=== PATIENT | female | born 1970 | race Caucasian/White ===

== ENCOUNTER → 2017-05-19 | Outpatient (CLI) | payer MEDICARE | LOC: KOH-I 09:28 | DX: M54.13 Radiculopathy, cervicothoracic region (principal); M50.31 Other cervical disc degeneration, high cervical region; M47.892 Other spondylosis, cervical region | CPT/HCPCS: 72141 ==

== ENCOUNTER 2021-03-02 18:00 | Inpatient (IN) | payer OTHER ==
[~2021-03-02] VITALS: Ht 157.5 cm; Wt 73.5 kg
[~2021-03-02 18:00] MED LIST: ASPIR-LOW81 MG PO; ATORVASTATIN CA20 MG PO; CLOPIDOGREL75 MG PO; HYDROCODON-ACE1 EAC6 PO; LISINOPRIL5 MG PO; LOPRESSOR 25 MG25 MG PO; NEURONTIN 300300 MG PO; OMNICEF 300 MG300 MG PO; PROTONIX 40 MG40 M1 PO; RANITIDINE HCL150 M1 PO; VENTOLIN HFA 66.7 GM INH; ZANTAC150 MG PO
[2021-03-02 18:40] LABS: HEMOGLOBIN 16.2 gm/dl (12.3-15.3); RED BLOOD COUNT 5.14 M/UL (4.00-5.10); WHITE BLOOD COUNT 8.7 K/UL (4.5-11.0)
[2021-03-02 19:07] LABS: BUN/CREATININE RATIO 24 (0-10)
[2021-03-03] MEDS ORDERED: MIRALAX17 GM PO (01:09)
[2021-03-03] MEDS ORDERED: ALBUTEROL2.5 MG/3 M INH (09:48)
[2021-03-03] MEDS ORDERED: LEVALBUTER1.25 MG/3 INH (09:49)
[2021-03-03] MEDS ORDERED: ISOSORBIDE MONO30 MG PO (09:51)
[2021-03-05 04:31] LABS: HEMOGLOBIN 14.8 gm/dl (12.3-15.3); RED BLOOD COUNT 4.71 M/UL (4.00-5.10)
[2021-03-05 04:32] LABS: WHITE BLOOD COUNT 16.5 K/UL (4.5-11.0)
[2021-03-05 05:03] LABS: BUN/CREATININE RATIO 30 (0-10)
[2021-03-05] MEDS ORDERED: SYMBICORT 160-1 INHA INH (12:39)
[2021-03-05] MEDS ORDERED: LEVOFLOXACIN500 MG PO (12:39)
[2021-03-05] MEDS ORDERED: MEDROL DOSEPAK 24 MG PO (12:39)
[2021-03-05] MEDS ORDERED: NICOTINE PATCH1 EAC2 TOP (12:45)
== END 2021-03-05 13:40 | disposition home or self-care (01) | DRG 202 ==
LOC: ER1 18:00 → MED SURG 4 20:14 → CDU 20:14 → MED SURG 4 03-03 00:05
PROVIDERS: Emergency Medicine; Internal Medicine Infectious Disease; ADMIT Internal Medicine
DX: J20.9 Acute bronchitis, unspecified (principal); J44.0 Chronic obstructive pulmonary disease with (acute) lower respiratory infection; J44.1 Chronic obstructive pulmonary disease with (acute) exacerbation; R07.81 Pleurodynia; E78.5 Hyperlipidemia, unspecified; Z20.822 Contact with and (suspected) exposure to COVID-19; K22.70 Barrett's esophagus without dysplasia; I25.10 Atherosclerotic heart disease of native coronary artery without angina pectoris; K21.9 Gastro-esophageal reflux disease without esophagitis; I45.81 Long QT syndrome; F17.210 Nicotine dependence, cigarettes, uncomplicated; I10 Essential (primary) hypertension; Z71.6 Tobacco abuse counseling; Z90.49 Acquired absence of other specified parts of digestive tract; Z82.49 Family history of ischemic heart disease and other diseases of the circulatory system
CPT/HCPCS: 36415; 71045; 80053; 80061; 80307; 82550; 82553; 83036; 83874; 84439; 84443; 84484; 85025; 86140; 93005; 94640; 94664; 94667; 94668; 94760; 96365; 96366; 96375; 99285; C9113; G0378; J1650; J2920; J2930; U0002